=== PATIENT | female | born 1985 | race Caucasian/White ===

== ENCOUNTER 2017-10-05 13:00 | Emergency (ER) | payer MEDICAID ==
[2017-10-05 14:02] LABS: ADD MAN DIFF? NO
[2017-10-05 14:12] LABS: WHITE BLOOD COUNT 13.4 10^3/ul (4.8-10.8)
[2017-10-05 14:12] LABS: BASOPHILS % 0.3 % (0.0-2.0); EOSINOPHILS # 0.3 10^3/ul (0.0-0.5); EOSINOPHILS % 2.5 % (0.0-7.0); HEMATOCRIT 38.6 % (37.0-47.0); HEMOGLOBIN 13.8 g/dl (12.0-16.0); LYMPHOCYTES # 4.7 10^3/ul (0.8-2.9); LYMPHOCYTES % 35.5 % (15.0-51.0); MEAN CORPUSCULAR HEMOGLOBIN 31.4 pg (29.0-33.0); MEAN CORPUSCULAR HGB CONC 35.8 g/dl (32.0-37.0); MEAN CORPUSCULAR VOLUME 87.9 fl (82.0-101.0); MEAN PLATELET VOLUME 12.5 fl (7.4-10.4); MONOCYTE # 0.7 10^3/ul (0.3-0.9); NEUTROPHIL # 7.5 10^3/ul (1.6-7.5); NEUTROPHILS % 56.1 % (39.0-77.0); PLATELET COUNT 241 10^3/UL (140-415); RED BLOOD COUNT 4.39 10^6/ul (4.20-5.40); RED CELL DISTRIBUTION WIDTH 13.2 % (11.5-14.5)
[2017-10-05 14:31] LABS: ANION GAP 15 (8-16); BLOOD UREA NITROGEN 7 mg/dl (7-20); CARBON DIOXIDE 22 mmol/L (21-31); CHLORIDE 105 mmol/L (97-110); CREATININE 0.59 mg/dl (0.44-1.00); GLUCOSE 79 mg/dl (70-220); POTASSIUM 3.8 mmol/L (3.5-5.1); SODIUM 138 mmol/L (135-144)
[2017-10-05 14:34] LABS: ALANINE AMINOTRANSFERASE 33 IU/L (13-69); ALBUMIN 3.6 g/dl (3.3-4.9); ALKALINE PHOSPHATASE 226 IU/L (42-121); ASPARTATE AMINO TRANSFERASE 25 IU/L (15-46); BILIRUBIN,INDIRECT 0.2 mg/dl (0-1.1); BILIRUBIN,TOTAL 0.2 mg/dl (0.2-1.3); TOTAL PROTEIN 6.6 g/dl (6.1-8.1)
[2017-10-05 15:09] LABS: TROPONIN-I < 0.012 ng/ml (0.00-0.12)
== END 2017-10-05 18:13 | disposition home or self-care (01) ==
LOC: E/R 18:13
DX: O14.93 Unspecified pre-eclampsia, third trimester (principal); O99.89 Other specified diseases and conditions complicating pregnancy, childbirth and the puerperium; R60.0 Localized edema; Z3A.36 36 weeks gestation of pregnancy
CPT/HCPCS: 36415; 80048; 80076; 84484; 84702; 85025; 93005; 99284-25

== ENCOUNTER 2017-10-05 13:59 | Outpatient (CLI) | payer MEDICAID ==
[2017-10-05 14:30] LABS: INR 0.84; PARTIAL THROMBOPLASTIN TIME 27.5 Sec (25.0-35.0); PROTIME 11.6 Sec (11.9-14.9); PT RATIO 0.9
[2017-10-05 15:21] LABS: ADD UMIC YES; UR ASCORBIC ACID NEGATIVE (NEGATIVE); UR BACTERIA FEW /HPF (NONE SEEN); UR BILIRUBIN (Dip) NEGATIVE (NEGATIVE); UR BLOOD (Dip) NEGATIVE (NEGATIVE); UR CLARITY SLIGHTLY CLOUDY (CLEAR); UR COLOR YELLOW (YELLOW); UR GLUCOSE (Dip) NEGATIVE (NEGATIVE); UR KETONES (Dip) NEGATIVE (NEGATIVE); UR LEUKOCYTE ESTERASE (Dip) 3+ Leu/ul (NEGATIVE); UR NITRITE (Dip) NEGATIVE (NEGATIVE); UR RBC 2 /HPF (0-5); UR SPECIFIC GRAVITY (Dip) 1.006 (1.003-1.030); UR SQUAMOUS EPITHELIAL CELL FEW /HPF (FEW); UR TOTAL PROTEIN (Dip) NEGATIVE (NEGATIVE); UR UROBILINOGEN (Dip) NEGATIVE (NEGATIVE); UR WBC 13 /HPF (0-5)
[2017-10-05] MEDS: LABETALOL 200 MG TAB PO (16:41)
== END 2017-10-05 20:30 | disposition home or self-care (01) ==
LOC: OBT 13:59 → L-D 13:59 → OBT 20:30
DX: O13.3 Gestational [pregnancy-induced] hypertension without significant proteinuria, third trimester (principal); Z3A.35 35 weeks gestation of pregnancy
CPT/HCPCS: 36415; 76818; 81001; 84560; 85384; 85610; 85730

== ENCOUNTER 2017-10-07 10:22 | Outpatient (CLI) | payer MEDICAID ==
[2017-10-07 10:55] LABS: ADD MAN DIFF? NO
[2017-10-07 10:59] LABS: BASOPHILS % 0.3 % (0.0-2.0); EOSINOPHILS # 0.3 10^3/ul (0.0-0.5); EOSINOPHILS % 3.3 % (0.0-7.0); HEMATOCRIT 34.6 % (37.0-47.0); HEMOGLOBIN 11.9 g/dl (12.0-16.0); MEAN CORPUSCULAR HEMOGLOBIN 30.5 pg (29.0-33.0); MEAN CORPUSCULAR HGB CONC 34.4 g/dl (32.0-37.0); MEAN CORPUSCULAR VOLUME 88.7 fl (82.0-101.0); MONOCYTE # 0.7 10^3/ul (0.3-0.9); MONOCYTES % 7.3 % (0.0-11.0); NEUTROPHILS % 55.7 % (39.0-77.0); PLATELET COUNT 212 10^3/UL (140-415); RED CELL DISTRIBUTION WIDTH 13.2 % (11.5-14.5)
[2017-10-07 11:09] LABS: COLLECTION PERIOD 24 hrs
[2017-10-07 11:19] LABS: ADD UMIC YES; UR ASCORBIC ACID 20 mg/dL (NEGATIVE); UR BACTERIA FEW /HPF (NONE SEEN); UR BILIRUBIN (Dip) NEGATIVE (NEGATIVE); UR BLOOD (Dip) NEGATIVE (NEGATIVE); UR CLARITY CLOUDY (CLEAR); UR COLOR AMBER (YELLOW); UR GLUCOSE (Dip) NEGATIVE (NEGATIVE); UR KETONES (Dip) TRACE mg/dL (NEGATIVE); UR LEUKOCYTE ESTERASE (Dip) 2+ Leu/ul (NEGATIVE); UR MUCUS FEW /HPF (NONE SEEN); UR NITRITE (Dip) NEGATIVE (NEGATIVE); UR RBC 5 /HPF (0-5); UR SPECIFIC GRAVITY (Dip) 1.025 (1.003-1.030); UR SQUAMOUS EPITHELIAL CELL MANY /HPF (FEW); UR TOTAL PROTEIN (Dip) 2+ mg/dl (NEGATIVE); UR UROBILINOGEN (Dip) NEGATIVE (NEGATIVE); UR WBC 12 /HPF (0-5)
[2017-10-07 11:30] LABS: ALANINE AMINOTRANSFERASE 24 IU/L (13-69); ALBUMIN 3.2 g/dl (3.3-4.9); ALBUMIN/GLOBULIN RATIO 1.06; ALKALINE PHOSPHATASE 175 IU/L (42-121); ANION GAP 13 (8-16); ASPARTATE AMINO TRANSFERASE 19 IU/L (15-46); BILIRUBIN,INDIRECT 0.3 mg/dl (0-1.1); BILIRUBIN,TOTAL 0.3 mg/dl (0.2-1.3); BLOOD UREA NITROGEN 8 mg/dl (7-20); CALCIUM 8.4 mg/dl (8.4-10.2); CARBON DIOXIDE 24 mmol/L (21-31); CHLORIDE 104 mmol/L (97-110); CREATININE 0.64 mg/dl (0.44-1.00); GLUCOSE 112 mg/dl (70-220); POTASSIUM 3.9 mmol/L (3.5-5.1); SODIUM 137 mmol/L (135-144); TOTAL PROTEIN 6.2 g/dl (6.1-8.1); URIC ACID 4.3 mg/dl (3.1-7.9)
[2017-10-07 11:31] LABS: VOLUME 1625 mls
[2017-10-07 11:35] LABS: PROTIME 12.2 Sec (11.9-14.9)
[2017-10-07 11:36] LABS: COLLECTION PERIOD 24 hrs; VOLUME 1625 ml/24hrs
[2017-10-07 11:37] LABS: CREATININE CLEARANCE 668.3 mls/min (84.0-162.0)
[2017-10-07 11:38] LABS: CREATININE,URINE RANDOM 378.98 mg/dl (20-320)
[2017-10-07 11:38] LABS: SCRET 0.64 mg/dl (0.44-1.00)
[2017-10-07 11:45] LABS: PARTIAL THROMBOPLASTIN TIME 26.6 Sec (25.0-35.0)
== END 2017-10-07 12:30 | disposition home or self-care (01) ==
LOC: OBT 10:22 → L-D 10:23 → OBT 12:30
DX: O13.3 Gestational [pregnancy-induced] hypertension without significant proteinuria, third trimester (principal); Z3A.35 35 weeks gestation of pregnancy
CPT/HCPCS: 76818; 80053; 81001; 82575; 84155; 84156; 84560; 85025; 85610; 85730

== ENCOUNTER 2017-10-23 12:54 | Inpatient (IN) | payer MEDICAID ==
[2017-10-23] MEDS ORDERED: IBUPROFEN 600 MG TAB PO (14:00)
[2017-10-23] MEDS ORDERED: BUTORPHANOL 2 MG INJ IV (14:00)
[2017-10-23] MEDS ORDERED: OXYTOCIN 30 UNITS/LR 500 ML IV ×2 (14:00)
[2017-10-23] MEDS ORDERED: METHYLERGONOVINE 0.2 MG INJ IM (14:00)
[2017-10-23] MEDS ORDERED: LIDOCAINE 1% (MPF) 30 ML INJ INJ (14:00)
[2017-10-23] MEDS ORDERED: LABETALOL HCL 20MG INJ IV (14:00)
[2017-10-23] MEDS ORDERED: CA GLUCONATE (GM) 10% 10ML INJ IV (14:00)
[2017-10-23] MEDS ORDERED: CARBOPROST 250 MCG INJ IM (14:00)
[2017-10-23] MEDS ORDERED: MISOPROSTOL 200 MCG TAB PR (14:00)
[2017-10-23] MEDS: LACTATED RINGER'S 1,000 ML IV (14:11)
[2017-10-23 14:12] LABS: ADD MAN DIFF? NO
[2017-10-23 14:15] LABS: WHITE BLOOD COUNT 11.1 10^3/ul (4.8-10.8)
[2017-10-23 14:15] LABS: BASOPHIL # 0.1 10^3/ul (0.0-0.1); BASOPHILS % 0.5 % (0.0-2.0); EOSINOPHILS # 0.5 10^3/ul (0.0-0.5); EOSINOPHILS % 4.5 % (0.0-7.0); HEMATOCRIT 35.2 % (37.0-47.0); HEMOGLOBIN 12.2 g/dl (12.0-16.0); LYMPHOCYTES # 3.7 10^3/ul (0.8-2.9); LYMPHOCYTES % 33.1 % (15.0-51.0); MEAN CORPUSCULAR HEMOGLOBIN 30.6 pg (29.0-33.0); MEAN CORPUSCULAR HGB CONC 34.7 g/dl (32.0-37.0); MEAN CORPUSCULAR VOLUME 88.2 fl (82.0-101.0); MONOCYTE # 0.7 10^3/ul (0.3-0.9); MONOCYTES % 6.5 % (0.0-11.0); NEUTROPHIL # 6.1 10^3/ul (1.6-7.5); NEUTROPHILS % 54.8 % (39.0-77.0); PLATELET COUNT 190 10^3/UL (140-415); RED BLOOD COUNT 3.99 10^6/ul (4.20-5.40); RED CELL DISTRIBUTION WIDTH 13.1 % (11.5-14.5)
[2017-10-23] MEDS: MAGNESIUM SULFATE 4 GM/100 ML 100 ML IV (14:16)
[2017-10-23 14:19] LABS: ADD UMIC YES; UR ASCORBIC ACID NEGATIVE (NEGATIVE); UR BILIRUBIN (Dip) NEGATIVE (NEGATIVE); UR BLOOD (Dip) NEGATIVE (NEGATIVE); UR CLARITY SLIGHTLY CLOUDY (CLEAR); UR COLOR YELLOW (YELLOW); UR GLUCOSE (Dip) NEGATIVE (NEGATIVE); UR KETONES (Dip) NEGATIVE (NEGATIVE); UR LEUKOCYTE ESTERASE (Dip) 1+ Leu/ul (NEGATIVE); UR NITRITE (Dip) NEGATIVE (NEGATIVE); UR RBC 2 /HPF (0-5); UR SPECIFIC GRAVITY (Dip) 1.013 (1.003-1.030); UR SQUAMOUS EPITHELIAL CELL FEW /HPF (FEW); UR TOTAL PROTEIN (Dip) 2+ mg/dl (NEGATIVE); UR UROBILINOGEN (Dip) NEGATIVE (NEGATIVE); UR WBC 5 /HPF (0-5)
[2017-10-23 14:30] LABS: INR 0.88; PT RATIO 0.9
[2017-10-23 14:31] LABS: ALANINE AMINOTRANSFERASE 39 IU/L (13-69); ALBUMIN 3.2 g/dl (3.3-4.9); ALBUMIN/GLOBULIN RATIO 1.03; ALKALINE PHOSPHATASE 222 IU/L (42-121); ANION GAP 11 (8-16); ASPARTATE AMINO TRANSFERASE 33 IU/L (15-46); BILIRUBIN,INDIRECT 0.2 mg/dl (0-1.1); BILIRUBIN,TOTAL 0.2 mg/dl (0.2-1.3); BLOOD UREA NITROGEN 10 mg/dl (7-20); CALCIUM 8.4 mg/dl (8.4-10.2); CARBON DIOXIDE 23 mmol/L (21-31); CHLORIDE 106 mmol/L (97-110); CREATININE 0.63 mg/dl (0.44-1.00); GLUCOSE 80 mg/dl (70-220); PARTIAL THROMBOPLASTIN TIME 29.2 Sec (25.0-35.0); POTASSIUM 4.2 mmol/L (3.5-5.1); SODIUM 136 mmol/L (135-144); TOTAL PROTEIN 6.3 g/dl (6.1-8.1); URIC ACID 4.4 mg/dl (3.1-7.9)
[2017-10-23] MEDS: MAGNESIUM SULFATE 20 GM/500 ML 500 ML IV (14:43)
[2017-10-23 15:45] LABS: RAPID PLASMA REAGIN NONREACTIVE (NR)
[2017-10-23] MEDS: DINOPROSTONE 10 MG VAG SUPP VAG (19:11)
[2017-10-24] MEDS: LACTATED RINGER'S 1,000 ML IV ×7 (00:56→21:42)
[2017-10-24] MEDS: MAGNESIUM SULFATE 20 GM/500 ML 500 ML IV ×3 (00:59→23:34)
[2017-10-24 07:39] LABS: MAGNESIUM 6.6 mg/dl (1.7-2.5)
[2017-10-24] MEDS: DINOPROSTONE 10 MG VAG SUPP VAG (10:16)
[2017-10-24 13:05] LABS: MAGNESIUM 6.2 mg/dl (1.7-2.5)
[2017-10-24 14:48] LABS: COLLECTION PERIOD 24 hrs
[2017-10-24 17:42] LABS: VOLUME 2900 mls
[2017-10-24 19:06] LABS: MAGNESIUM 6.6 mg/dl (1.7-2.5)
[2017-10-25] MEDS: ACETAMINOPHEN 325 MG TAB PO (01:06)
[2017-10-25] MEDS: OXYTOCIN 30 UNITS/LR 500 ML IV ×5 (01:06→22:15)
[2017-10-25 01:19] LABS: MAGNESIUM 6.4 mg/dl (1.7-2.5)
[2017-10-25] MEDS: LACTATED RINGER'S 1,000 ML IV ×3 (06:47→08:36)
[2017-10-25 07:17] LABS: MAGNESIUM 7.2 mg/dl (1.7-2.5)
[2017-10-25] MEDS ORDERED: FENTAnyl 2MCG/ML-ROPIV 0.2% 100 ML (07:53)
[2017-10-25] MEDS ORDERED: TERBUTALINE 1 ML (08:44)
[2017-10-25] MEDS: TERBUTALINE 1 MG/ML INJ SC (08:46)
[2017-10-25] MEDS: CEFAZOLIN 2 GM/50 ML (PMX) 50 ML IVPB (09:00)
[2017-10-25] MEDS ORDERED: OXYTOCIN 10 UNIT INJ (09:06)
[2017-10-25] MEDS ORDERED: PHENYLephrine (100 MCG/ML) 5ML SYG (09:18)
[2017-10-25] MEDS ORDERED: CEFAZOLIN 1 GM INJ (09:22)
[2017-10-25] MEDS ORDERED: KETOROLAC 30 MG INJ (09:22)
[2017-10-25] MEDS ORDERED: ONDANSETRON 4 MG INJ (09:22)
[2017-10-25] MEDS ORDERED: METOCLOPRAMIDE 10 MG INJ (09:22)
[2017-10-25] MEDS ORDERED: DEXAMETHASONE 4 MG/ML 1 ML INJ (09:22)
[2017-10-25] MEDS ORDERED: morphine SULFATE/PF (10 MG/10 ML) INJ (09:25)
[2017-10-25] MEDS: MAGNESIUM SULFATE 20 GM/500 ML 500 ML IV ×2 (10:15→18:43)
[2017-10-25] MEDS ORDERED: morphine 4 MG/ML VIAL IV (10:30)
[2017-10-25] MEDS ORDERED: NALBUPHINE HCL (10 MG/1 ML) INJ IV (10:30)
[2017-10-25] MEDS ORDERED: DIPHENHYDRAMINE 50 MG INJ IV (10:30)
[2017-10-25] MEDS ORDERED: morphine 2 MG INJ IV (10:30)
[2017-10-25] MEDS ORDERED: ACETAMINOPHEN 500 MG TAB PO (10:30)
[2017-10-25] MEDS ORDERED: HYDROCODONE/APAP (5/325) TAB PO ×3 (10:30→12:30)
[2017-10-25] MEDS ORDERED: HYDROmorphONE 0.5 MG/0.5 ML SYG IV ×2 (10:30)
[2017-10-25] MEDS ORDERED: ONDANSETRON 4 MG INJ IV (10:30)
[2017-10-25] MEDS ORDERED: NALOXONE (0.4 MG/ML) INJ IV (10:30)
[2017-10-25] MEDS ORDERED: OXYTOCIN 30 UNITS/LR 500 ML IV (12:30)
[2017-10-25] MEDS ORDERED: METHYLERGONOVINE 0.2 MG INJ IM (12:30)
[2017-10-25] MEDS ORDERED: LANOLIN 7 GM TUBE TOP (12:30)
[2017-10-25] MEDS ORDERED: MISOPROSTOL 200 MCG TAB PR (12:30)
[2017-10-25] MEDS ORDERED: OXYCODONE/ACETAMINOPHEN (5/325) TAB PO ×2 (12:30)
[2017-10-25] MEDS ORDERED: CARBOPROST 250 MCG INJ IM (12:30)
[2017-10-25 13:44] LABS: MAGNESIUM 6.8 mg/dl (1.7-2.5)
[2017-10-25] MEDS: KETOROLAC 30 MG INJ IV (15:14)
[2017-10-25] MEDS: CEFAZOLIN 1 GM/50 ML (PMX) 50 ML IVPB (17:42)
[2017-10-25] MEDS ORDERED: MAGNESIUM SULFATE 2 GM/50 ML 50 ML IVPB (19:00)
[2017-10-25 19:22] LABS: MAGNESIUM 7.2 mg/dl (1.7-2.5)
[2017-10-25] MEDS: LABETALOL 100 MG TAB PO (20:58)
[2017-10-25] MEDS ORDERED: LABETALOL 200 MG TAB PO ×2 (21:00)
[2017-10-26] MEDS: OXYTOCIN 30 UNITS/LR 500 ML IV ×2 (00:22→04:22)
[2017-10-26] MEDS: KETOROLAC 30 MG INJ IV ×2 (00:54→06:29)
[2017-10-26 01:43] LABS: MAGNESIUM 6.3 mg/dl (1.7-2.5)
[2017-10-26] MEDS: LACTATED RINGER'S 1,000 ML IV (05:57)
[2017-10-26] MEDS: IBUPROFEN 600 MG TAB PO ×3 (06:00→17:54)
[2017-10-26 08:01] LABS: ADD MAN DIFF? NO
[2017-10-26 08:09] LABS: BASOPHILS % 0.2 % (0.0-2.0); EOSINOPHILS # 0.1 10^3/ul (0.0-0.5); EOSINOPHILS % 0.4 % (0.0-7.0); HEMOGLOBIN 10.8 g/dl (12.0-16.0); LYMPHOCYTES # 3.2 10^3/ul (0.8-2.9); LYMPHOCYTES % 22.6 % (15.0-51.0); MEAN CORPUSCULAR HEMOGLOBIN 30.7 pg (29.0-33.0); MEAN CORPUSCULAR HGB CONC 34.8 g/dl (32.0-37.0); MEAN CORPUSCULAR VOLUME 88.1 fl (82.0-101.0); MEAN PLATELET VOLUME 12.2 fl (7.4-10.4); MONOCYTE # 1.1 10^3/ul (0.3-0.9); MONOCYTES % 7.5 % (0.0-11.0); NEUTROPHIL # 9.7 10^3/ul (1.6-7.5); PLATELET COUNT 180 10^3/UL (140-415); RED BLOOD COUNT 3.52 10^6/ul (4.20-5.40); RED CELL DISTRIBUTION WIDTH 13.2 % (11.5-14.5)
[2017-10-26] MEDS: SENNA/DOCUSATE NA (8.6MG/50MG) TAB PO ×2 (09:30→21:11)
[2017-10-26] MEDS: LABETALOL 100 MG TAB PO ×2 (09:30→21:11)
[2017-10-26 10:41] LABS: MAGNESIUM 5.8 mg/dl (1.7-2.5)
[2017-10-27] MEDS: IBUPROFEN 600 MG TAB PO ×5 (00:03→23:46)
[2017-10-27] MEDS: SENNA/DOCUSATE NA (8.6MG/50MG) TAB PO ×2 (09:29→21:00)
[2017-10-27] MEDS: LABETALOL 100 MG TAB PO ×2 (09:30→21:39)
[2017-10-27] MEDS: INFLUENZA VIRUS VACCINE 0.5 ML (DISPENSING) IM* (09:35)
[2017-10-28] MEDS: IBUPROFEN 600 MG TAB PO ×3 (05:40→18:10)
[2017-10-28] MEDS: SENNA/DOCUSATE NA (8.6MG/50MG) TAB PO ×2 (09:00→21:00)
[2017-10-28] MEDS: LABETALOL 100 MG TAB PO ×2 (09:41→21:33)
[2017-10-28] MEDS: DIPHTH/TET/ACEL PERTUSS (ADULT) 0.5 ML VIAL IM* (12:23)
[2017-10-28] MEDS: NIFEdipine (XL) 30 MG TAB PO (14:21)
[2017-10-29] MEDS: IBUPROFEN 600 MG TAB PO ×3 (00:13→12:26)
[2017-10-29] MEDS: SENNA/DOCUSATE NA (8.6MG/50MG) TAB PO (09:00)
[2017-10-29] MEDS: NIFEdipine (XL) 30 MG TAB PO (09:34)
[2017-10-29] MEDS: LABETALOL 100 MG TAB PO (09:35)
== END 2017-10-29 16:24 | disposition home or self-care (01) | DRG 766 ==
LOC: L-D 10-25 08:53 → PP1 10-25 17:13
PROC: 3E0P7VZ Introduction of Hormone into Female Reproductive, Via Natural or Artificial Opening (ICD-10-PCS; 2017-10-23)
PROC: 10D00Z1 Extraction of Products of Conception, Low, Open Approach (ICD-10-PCS; principal; 2017-10-25)
DX: O14.94 Unspecified pre-eclampsia, complicating childbirth (principal); O76 Abnormality in fetal heart rate and rhythm complicating labor and delivery; Z3A.38 38 weeks gestation of pregnancy; Z37.0 Single live birth
CPT/HCPCS: 76815; 76818; 80053; 81001; 83735; 84156; 84560; 85025; 85384; 85610; 85730; 86592; 86885; 86900; 86901; 88307; 90686; 90715; 99464